=== PATIENT | female | born 1970 | race Caucasian/White ===

== ENCOUNTER 2020-08-24 06:56 | Emergency (ER) | payer OTHER ==
[~2020-08-24] VITALS: Ht 154.9 cm; Wt 47.6 kg
[2020-08-24] MEDS ORDERED: CELEXA 10 MG TA10 M1 PO (07:06)
[2020-08-24 09:35] VITALS: BP 120/70
== END 2020-08-24 09:35 | disposition home or self-care (01) ==
LOC: M.ERS 06:56
DX: S01.111A Laceration without foreign body of right eyelid and periocular area, initial encounter (principal); W01.0XXA Fall on same level from slipping, tripping and stumbling without subsequent striking against object, initial encounter; Y93.89 Activity, other specified; Y92.89 Other specified places as the place of occurrence of the external cause; Y99.8 Other external cause status